=== PATIENT | female | born 1955 ===

== ENCOUNTER 2019-07-24 14:07 | Outpatient (CLI) | payer BC ==
--- NOTE | 2019-07-24 15:04 | CT ---
CT CHEST WITHOUT CONTRAST: Date: 07/24/2019 Axial tomograms obtained. Low dose screening protocol was followed for pulmonary screening. INDICATION: History of tobacco use. Smoking 1 pack a day for 39 years. FINDINGS: Lungs show mild hyperexpansion. There is mild diffuse interstitial thickening in the periphery of bot h lungs. There is early centrilobular emphysematous change in the upper lobes. There is a 1.0 cm calcified nodule in the left mid lung field, superior left lower lobe. There is a 4.0 mm calcified nodule posterior right lower lobe, pleural based. No evidence of soft tissue mass or nodule. Review of the mediastinum shows nonspecific mediastinal and hilar lymph nodes. There are calcified le ft hilar lymph nodes. Images through the upper abdomen show granulomatous calcifications in the spleen. Osseous structures unremarkable. IMPRESSION: 1. There are chronic lung parenchymal changes described above with mild interstitial thickening in t he periphery and early centrilobular emphysematous change. 2. Evidence of prior granulomatous process with calcified hilar lymph nodes and calcified granuloma as described above. 3. Lung-RADS 2. Recommend annual low dose screening chest CT. POS: [facility]
== END 2019-07-24 14:08 | disposition home or self-care (01) ==
LOC: BICCT 14:07
PROVIDERS: ATTEND Family Medicine
DX: Z12.2 Encounter for screening for malignant neoplasm of respiratory organs (principal); F17.210 Nicotine dependence, cigarettes, uncomplicated; J43.2 Centrilobular emphysema; I89.8 Other specified noninfective disorders of lymphatic vessels and lymph nodes; J84.10 Pulmonary fibrosis, unspecified
CPT/HCPCS: G0297

== ENCOUNTER 2020-08-01 11:20 | Outpatient (CLI) | payer BC | END 2020-08-01 11:21 | disposition home or self-care (01) | LOC: BICCT 11:20 | PROVIDERS: ATTEND Family Medicine | DX: Z12.2 Encounter for screening for malignant neoplasm of respiratory organs (principal); F17.200 Nicotine dependence, unspecified, uncomplicated; J44.9 Chronic obstructive pulmonary disease, unspecified | CPT/HCPCS: 71271 ==